=== PATIENT | female | born 1960 | race Caucasian/White ===

== ENCOUNTER 2016-12-21 19:20 | Emergency (ER) | payer MEDICARE ==
[~2016-12-21 19:20] MED LIST: ADULT LOW DOSE81 M1 PO; ADVIL200 M2 PO; ALPRAZOLAM1 M1 PO; ALPRAZOLAM1 M2 PO; AMARYL2 M1 PO; ATARAX25 MG PO; AUGMENTIN 875-1 EAC2 PO; AUGMENTIN 875-11 TAB PO; CATAPRES0.2 M1 PO; CATAPRES0.2 MG PO; CLEOCIN HCL300 M1 PO; CLONIDINE HCL0.1 MG PO; CLONIDINE HCL0.2 M1 PO; CLONIDINE HCL0.2 MG PO; CYMBALTA30 MG PO; DOXEPIN HCL50 MG PO; EFFEXOR XR75 MG PO; EFFEXOR75 M1 PO; FLEXERIL10 MG PO; FLEXERIL5 MG PO; HYDROCODON-ACE1 EAC7 PO; HYDROXYZINE HCL50 MG PO; IBUPROFEN200 M1 PO; INVANZ1000 MG/VI IV; K-DUR20 ME1 PO; KEFLEX500 M4 PO; LASIX40 MG PO; LISINOPRIL-HCT1 EACH PO; LISINOPRIL-HCTZ PO; LISINOPRIL20 MG PO; LOPRESSOR100 M1 PO; METFORMIN HCL500 M3 PO; METOPROLOL TAR100 MG PO; NIASPAN500 M1 PO; NORCO 5-325 TA1 EACH PO; NORCO 5/325 TAB1 TAB PO; NORVASC2.5 MG PO; NORVASC5 M2 PO; NORVASC5 MG PO; OMEPRAZOLE40 M2 PO; OXYCODON-ACETA1 EAC4 PO; OXYCODONE HCL5 M1 PO; PERCOCET 5-3251 EACH PO; PERCOCET 5/3251 TAB PO; PREMARIN0.625 MG/T PO; PRINIVIL20 M1 PO; PROGESTERONE100 M1 PO; SKELAXIN800 M1 PO; SKELAXIN800 M3 PO; SKELAXIN800 MG PO; ST. JOHN'S WOR300 M1 PO; ST. JOHN'S WOR300 MG PO; TYLENOL325 MG PO; VICODIN 5/500 T1 TAB PO; VITAMIN B-121000 MC1 PO; XANAX0.25 MG PO; XANAX0.5 MG PO; XANAX2 M1 PO; XANAX2 MG PO; ZESTORETIC 20/11 TAB PO; [UNRECOGNIZED DRUG - CODE] PO
[2016-12-21 21:05] LABS: BASO % 0.2 % (0-2); EOSINOPHIL ABSOLUTE COUNT 0.3 tho/cmm (0.0-0.7); HCT-HEMATOCRIT 39.1 % (34.0-49.0); HGB-HEMOGLOBIN 13.1 gm/dl (12.0-15.5); IMMATURE GRANULOCYTES ABSOLUTE 0.02 tho/cmm (0-0.03); IMMATURE GRANULOCYTES PERCENT 0.2 % (0-0.3); LYMPH ABSOLUTE COUNT 2.2 tho/cmm (0.8-4.5); MCH (MEAN CORPUSCULAR HGB) 28.7 pg (28.0-32.0); MCHC MEAN CORPUSCULAR HGB CONC 33.5 % (32.0-36.0); MCV (MEAN CELL VOLUME) 85.6 fl (82.0-96.0); MEAN PLATELET VOLUME 9.6 cmc (9.4-12.4); MONO % 6.6 % (0-12); MONOCYTE ABSOLUTE COUNT 0.6 tho/cmm (0.0-1.2); NEUTROPHIL ABSOLUTE COUNT 6.5 tho/cmm (1.6-8.0); NEUTROPHIL-AUTOMATED 6.5 tho/cmm (1.6-8.0); PLATELET COUNT 304 tho/cmm (150-450); RED BLOOD COUNT 4.57 mil/cmm (4.00-5.20); RED CELL DISTRIBUTION WIDTH 13.1 % (12.4-16.4); WHITE BLOOD COUNT 9.7 tho/cmm (4.0-10.0)
[2016-12-21 21:21] LABS: ALB/GLOB RATIO 0.8 (0.8-2.0); ALBUMIN 3.2 g/dl (3.5-5.0); ALKALINE PHOSPHATASE 70 U/L (33-138); ALT/SGPT 18 U/L (12-78); ANION GAP 12 mmol/L (0-20); AST/SGOT 11 U/L (10-40); BILIRUBIN,TOTAL 0.4 mg/dl (0-1.5); BLOOD UREA NITROGEN 12 mg/dl (6-24); CALCIUM 9.1 mg/dl (8.5-10.5); CARBON DIOXIDE-VENOUS 31 mmol/L (22-32); CHLORIDE 100 mmol/l (96-110); CREATININE 0.91 mg/dl (0.50-1.10); GLUCOSE 189 mg/dL (70-110); POTASSIUM 3.4 mmol/L (3.7-5.1); SODIUM 140 mmol/L (135-145); eGFR VALUE FOR BLACK >60 mL/Min
[2016-12-29] MEDS ORDERED: TOPROL XL100 M1 PO (09:27)
[2017-04-24] MEDS ORDERED: AUGMENTIN 875-1 EAC2 PO (08:52)
[2017-04-24] MEDS ORDERED: PREMARIN1.25 M1 PO (08:53)
[2017-04-24] MEDS ORDERED: VITAMIN B-12250 MC2 PO (08:53)
[2017-04-24] MEDS ORDERED: ASPIRIN81 M1 PO (08:53)
[2017-04-24] MEDS ORDERED: OMEPRAZOLE40 M2 PO (08:54)
[2017-04-24] MEDS ORDERED: NORVASC10 M2 PO (08:54)
[2017-04-24] MEDS ORDERED: GLUCOPHAGE1000 M1 PO (08:54)
[2017-04-24] MEDS ORDERED: LOPRESSOR100 M1 PO (08:54)
[2017-05-10] MEDS ORDERED: VITAMIN D31000 UNI3 PO (10:16)
[2017-05-10] MEDS ORDERED: ST. JOHN'S WOR300 M1 PO (10:16)
[2017-07-09] MEDS ORDERED: MECLIZINE HCL25 M3 PO (23:07)
== END 2016-12-21 21:47 ==
LOC: EDMED 19:20
PROVIDERS: Emergency Medicine
DX: I10 Essential (primary) hypertension (principal); Z88.2 Allergy status to sulfonamides
CPT/HCPCS: J2405; J7030